=== PATIENT | male | born 1985 | race Caucasian/White ===

== ENCOUNTER 2023-07-19 22:56 | Emergency (ER) | payer MEDICAID ==
[~2023-07-19] VITALS: Ht 162.6 cm; Wt 79.4 kg
[2023-07-19 23:15] VITALS: BP_SYST 148; PULSE 61; RESP 16; TEMP 98.6; O2SAT 99
[2023-07-19] MEDS: KETOROLAC TROMETHAMINE 30 MG VIAL IVP ONE (23:56)
[2023-07-19] MEDS: NACL 0.9% 1,000 ML IV ONE (23:57)
[2023-07-20] MEDS: MORPHINE 4 MG INJ. 4 MG/ML VIAL IVP ONE (01:16)
[2023-07-20] MEDS ORDERED: NAPR-690 PO (02:37)
[2023-07-20 02:38] LABS: BASOPHILS % (AUTO) 0.2 % (0.0-2.0); EOSINOPHILS % (AUTO) 0.2 % (0.0-4.0); HEMATOCRIT 38.9 % (36-54); HEMOGLOBIN 13.5 g/dL (14.0-18.0); LYMPHOCYTES # (AUTO) 1.1 K/uL (1.0-5.5); LYMPHOCYTES % (AUTO) 9.5 % (20.5-51.5); MEAN CORPUSCULAR HEMOGLOBIN 30 pg (27-31); MEAN CORPUSCULAR HGB CONC 35 % (32-36); MEAN CORPUSCULAR VOLUME 87 fL (79.0-98.0); MONOCYTES # (AUTO) 0.6 K/uL (0.0-1.0); MONOCYTES % (AUTO) 5.3 % (1.7-9.3); NEUTROPHILS # (AUTO) 10.1 K/uL (1.8-7.7); NEUTROPHILS % (AUTO) 84.8 % (40.0-70.0); PLATELET COUNT (AUTO) 179 K/uL (130-430); RED BLOOD CELL COUNT(AUTO) 4.48 MIL/uL (4.2-6.2); RED CELL DISTRIBUTION WIDTH 13.6 % (9.0-15.0); WHITE BLOOD COUNT (AUTO) 11.9 K/uL (4.8-10.8)
[2023-07-20] MEDS ORDERED: TAMS-11 PO (02:39)
[2023-07-20 02:49] LABS: BILIRUBIN,URINE NEGATIVE (NEGATIVE); COLOR,URINE YELLOW (YELLOW); GLUCOSE,URINE NEGATIVE (NEGATIVE); KETONES,URINE NEGATIVE (NEGATIVE); LEUKOCYTE ESTERASE ,URINE NEGATIVE (NEGATIVE); NITRITE, URINE NEGATIVE (NEGATIVE); PROTEIN URINE NEGATIVE (NEGATIVE); UROBILINOGEN,URINE 0.2 (0.2-1.0)
[2023-07-20 02:57] LABS: BLOOD, URINE 1+ (NEGATIVE); CLARITY/URINE HAZY (CLEAR)
[2023-07-20 02:58] LABS: BACTERIA,URINE None Seen /HPF (None Seen); WBC,URINE 0-3 /HPF (0-3)
[2023-07-20 03:08] VITALS: BP_SYST 145; PULSE 70; RESP 18; TEMP 98; O2SAT 96
[2023-07-20 03:12] LABS: BILIRUBIN,DIRECT 0.1 mg/dL (0.0-0.3); CALCIUM 7.6 mg/dL (8.4-11.0); POTASSIUM 3.7 mmol/L (3.5-5.1); TOTAL BILIRUBIN 0.5 mg/dL (0.0-1.0); TOTAL PROTEIN, SERUM 6.3 g/dL (6.4-8.3)
== END 2023-07-20 02:47 | disposition home or self-care (01) ==
LOC: SED 22:56
DX: N20.1 Calculus of ureter (principal); R10.31 Right lower quadrant pain; R11.0 Nausea
CPT/HCPCS: 99285; 80076; 80048; 81001; 85025; 87040; 36415; 83605; 81000; 74176; 96374; 96361; 96375; 81015; J1885; J2270; J7030